=== PATIENT | female | born 1990 | race Caucasian/White ===

== ENCOUNTER 2021-03-31 11:42 | Emergency (ER) | payer OTHER ==
[~2021-03-31] VITALS: Ht 162.6 cm; Wt 113.4 kg
[2021-03-31 11:50] VITALS: BP_SYST 134
--- NOTE | 2021-03-31 11:50 | NUR ---
Patient to ER bed 4 to gown for evaluation. Side rails up. Report given to SARAVANAN ORITZ.
--- NOTE | 2021-03-31 11:52 | NUR ---
ER at bedside examining patient.
--- NOTE | 2021-03-31 11:55 | NUR ---
Patient AAOx4, ambulatory, denies any pain or SOB at this time. Patient complaining of anxiety for past 2 days and feels restless. Vital signs stable, no signs or symptoms of acute distress noted.
[2021-03-31] MEDS ORDERED: LORazepam 2 MG/ML VIAL IM ONE (12:00)
[2021-03-31 13:21] VITALS: BP_SYST 134
--- NOTE | 2021-03-31 13:22 | NUR ---
Patient given written and verbal discharge instructions and verbalizes understanding. ER MD discussed with patient the results and treatment provided. Patient in stable condition. ID arm band removed. Patient educated on pain management and to follow up with PMD. Pain Scale 0/10. Opportunity for questions provided and answered. Medication side effect fact sheet provided.
--- NOTE | 2021-03-31 13:25 | NUR ---
pt dicahrged w/ a responsible adult.
== END 2021-03-31 13:21 | disposition home or self-care (01) ==
LOC: SED 11:42
DX: R00.2 Palpitations (principal); R06.4 Hyperventilation; F41.9 Anxiety disorder, unspecified
CPT/HCPCS: 96372; 99283; J2060

== ENCOUNTER 2022-02-17 17:39 | Emergency (ER) | payer OTHER ==
[~2022-02-17] VITALS: Ht 165.1 cm; Wt 104.3 kg
[2022-02-17 17:57] VITALS: BP_SYST 114
--- NOTE | 2022-02-17 18:00 | NUR ---
Pt to [facility] [address] coming from home via wheelchair accompanied by significant other. Pt c/o right ankle pain due to falling thursday night. Did not hit head. Rates right ankle pain swelling noted to right ankle. Pt is A&Ox4. Skin intact. No chest pain and no sob. Denies n/v. Ice pack given to place on right ankle with towel wrapped around icebag. NKA. No known medical conditions. Bed in lowest position.
--- NOTE | 2022-02-17 18:25 | NUR ---
Dr. Tadeo at bedside examining pt.
[2022-02-17] MEDS ORDERED: IBUPROFEN 600 MG TABLET PO ONE (18:30)
--- NOTE | 2022-02-17 18:35 | NUR ---
Ibuprofen 600mg PO given to pt once.
[2022-02-17] MEDS ORDERED: ACET-2634 PO (18:59)
[2022-02-17] MEDS ORDERED: IBUP-1969 PO (18:59)
[2022-02-17 19:23] VITALS: BP_SYST 132
--- NOTE | 2022-02-17 19:24 | NUR ---
Patient given written and verbal discharge instructions and verbalizes understanding. ER MD discussed with patient the results and treatment provided. Patient in stable condition. ID arm band removed. Rx of Tylenol & Ibuprofen given. Patient educated on pain management and to follow up with PMD. Pain Scale . Opportunity for questions provided and answered. Medication side effect fact sheet provided.
== END 2022-02-17 19:23 | disposition home or self-care (01) ==
LOC: SED 17:39
DX: S93.401A Sprain of unspecified ligament of right ankle, initial encounter (principal); Z79.899 Other long term (current) drug therapy; X50.1XXA Overexertion from prolonged static or awkward postures, initial encounter; Y93.89 Activity, other specified; Y92.89 Other specified places as the place of occurrence of the external cause; Y99.8 Other external cause status
CPT/HCPCS: 99283